=== PATIENT | female | born 1955 | race American Indian/Alaskan Native ===

== ENCOUNTER 2018-01-12 15:30 | Emergency (ER) | payer OTHER ==
[2018-01-12 15:38] VITALS: BP 199/79
[2018-01-12] MEDS ORDERED: CATAPRES PO ONE (16:00)
--- NOTE | 2018-01-12 16:09 | Emergency Department Report ---
ED General Adult HPI - General Chief complaint: Earache Stated complaint: RINGING IN RIGHT EAR Time Seen by Provider: 01/12/18 15:48 Source: patient Mode of arrival: Ambulatory Limitations: No Limitations - History of Present Illness Initial comments: Patient is a 62-year-old female who is complaining of right ear ringing. Patient states she's had ringing in the ears in the past but this is lasted longer than her norm. Patient denies any pain in the ear. Patient denies any cough chest pain shortness of breath nausea vomiting diarrhea or headache also. Patient did stop taking her blood pressure medicines because she didn't like the side effects. This is been several weeks she's been without blood pressure medicines and her blood pressure is elevated at approximately 200 systolic. - Related Data Previous Rx's Medication Instructions Recorded Last Taken Type Lisinopril/Hydrochlorothiazide 1 each PO DAILY #30 tablet 01/12/18 Unknown Rx [Zestoretic 20-12.5 mg] Allergies Allergy/AdvReac Type Severity Reaction Status Date / Time Penicillins Allergy Unknown Verified 01/12/18 15:35 ED Review of Systems ROS: Stated complaint: RINGING IN RIGHT EAR Other details as noted in HPI Comment: All other systems reviewed and negative ED Past Medical Hx - Past Medical History Hx Hypertension: Yes - Social History Smoking Status: Never Smoker Substance Use Type: None - Medications Home Medications: Home Medications Medication Instructions Recorded Confirmed Last Taken Type Lisinopril/Hydrochlorothiazide 1 each PO DAILY #30 tablet 01/12/18 Unknown Rx [Zestoretic 20-12.5 mg] ED Physical Exam - General Limitations: No Limitations General appearance: alert, in no apparent distress - Head Head exam: Present: atraumatic, normocephalic - Eye Eye exam: Present: normal appearance - ENT ENT exam: Present: mucous membranes moist - Neck Neck exam: Present: normal inspection - Respiratory Respiratory exam: Present: normal lung sounds bilaterally. Absent: respiratory distress - Cardiovascular Cardiovascular Exam: Present: regular rate, normal rhythm. Absent: systolic murmur, diastolic murmur, rubs, gallop - GI/Abdominal GI/Abdominal exam: Present: soft, normal bowel sounds - Extremities Exam Extremities exam: Present: normal inspection - Back Exam Back exam: Present: normal inspection - Neurological Exam Neurological exam: Present: alert, oriented X3 - Psychiatric Psychiatric exam: Present: normal affect, normal mood - Skin Skin exam: Present: warm, dry, intact, normal color. Absent: rash ED Course Vital Signs 01/12/18 15:36 Temperature 98.1 F Pulse Rate 99 H Respiratory 18 Rate Blood Pressure 199/79 O2 Sat by Pulse 98 Oximetry ED Medical Decision Making - Medical Decision Making Patient's physical exam shows no abdomen mildly. Patient does not have any signs of symptoms of end organ damage secondary to her high blood pressure. Patient will be restarted on her blood pressure medicines and referred to ENT for the tinnitus. Critical care attestation.: If time is entered above; I have spent that time in minutes in the direct care of this critically ill patient, excluding procedure time. ED Disposition Clinical Impression: Hypertensive urgency, Tinnitus Disposition: DC-01 TO HOME OR SELFCARE Is pt being admited?: No Does the pt Need Aspirin: No Condition: Stable Instructions: Hypertension (ED) Prescriptions: Lisinopril/Hydrochlorothiazide [Zestoretic 20-12.5 mg] 1 each PO DAILY #30 tablet Referrals: [facility] [Outside] - 3-5 Days
== END 2018-01-12 16:28 | disposition home or self-care (01) ==
LOC: ED 15:30
DX: H93.11 Tinnitus, right ear (principal); I10 Essential (primary) hypertension; Z88.0 Allergy status to penicillin
CPT/HCPCS: 99282

== ENCOUNTER 2018-02-26 11:00 | Outpatient (CLI) | payer OTHER | END 2018-02-26 11:01 | disposition home or self-care (01) | LOC: SLR 11:00 | PROVIDERS: ATTEND Otolaryngology | DX: G47.30 Sleep apnea, unspecified (principal); I10 Essential (primary) hypertension | CPT/HCPCS: G0399 ==